=== PATIENT | male | born 1970 ===

== ENCOUNTER → 2022-11-09 10:14 | Outpatient (CLI) | payer OTHER | END | disposition home or self-care (01) | LOC: LAB 10:14 | DX: E11.9 Type 2 diabetes mellitus without complications (principal); I10 Essential (primary) hypertension; E03.9 Hypothyroidism, unspecified; Z12.39 Encounter for other screening for malignant neoplasm of breast; K92.1 Melena ==

== ENCOUNTER 2022-11-26 16:01 | Outpatient (CLI) | payer OTHER | END 2022-11-26 16:03 | disposition home or self-care (01) | LOC: LAB 16:01 | DX: M06.9 Rheumatoid arthritis, unspecified (principal); M13.0 Polyarthritis, unspecified; N39.0 Urinary tract infection, site not specified; M32.9 Systemic lupus erythematosus, unspecified ==

== ENCOUNTER 2023-03-18 08:26 | Outpatient (CLI) | payer OTHER | END 2023-03-18 08:30 | disposition home or self-care (01) | LOC: MAMO-SONO 08:26 | PROVIDERS: ATTEND Obstetrics & Gynecology | DX: N63.0 Unspecified lump in unspecified breast (principal); N64.59 Other signs and symptoms in breast; N64.9 Disorder of breast, unspecified; Z12.31 Encounter for screening mammogram for malignant neoplasm of breast; N94.0 Mittelschmerz; R10.2 Pelvic and perineal pain; N94.89 Other specified conditions associated with female genital organs and menstrual cycle ==

== ENCOUNTER 2023-03-25 13:25 | Outpatient (CLI) | payer OTHER | END 2023-03-25 14:50 | disposition home or self-care (01) | LOC: NUCLEAR 13:25 | PROVIDERS: ATTEND Obstetrics & Gynecology | DX: M81.0 Age-related osteoporosis without current pathological fracture (principal) ==